=== PATIENT | male | born 1995 | race Caucasian/White ===

== ENCOUNTER 2021-04-18 12:54 | Observation (INO) ==
[2021-04-18 14:42] LABS: Basophils % 0.2 %; Eosinophils % 0.1 %; Hematocrit 45.5 % (37.5-50.1); Hemoglobin 14.6 g/dL (12.9-16.9); Immature Granulocytes % 0.2 % (0-4); Lymphocytes # 0.9 K/mcL (0.6-4.6); Lymphocytes % 10.8 %; Mean Corpuscular HGB Conc 32.1 g/dL (31.6-35.5); Mean Corpuscular Hemoglobin 29.9 pg (28.0-33.3); Mean Corpuscular Volume 93.2 fL (83.0-100.0); Mean Platelet Volume 9.5 fL (9.4-12.4); Monocytes # 0.9 K/mcL (0.0-1.3); Monocytes % 10.4 %; Neutrophils # 6.6 K/mcL (1.6-8.9); Platelet Count 288 K/mcL (140-400); Red Blood Count 4.88 M/mcL (4.19-5.50); Red Cell Distribution Width 12.7 % (11.5-14.5); Segmented Neutrophils % 78.3 %; White Blood Count 8.5 K/mcL (4.3-11.1)
[2021-04-18 15:01] LABS: BUN/Creatinine Ratio 13 (6-26); Blood Urea Nitrogen 11 mg/dL (6-20); Calcium 9.4 mg/dL (8.6-10.3); Carbon Dioxide 29 mEq/L (23-29); Chloride 104 mEq/L (98-107); Glucose 115 mg/dL (70-105); Osmolality,Calculated 290 (280-300); Potassium 3.6 mEq/L (3.5-5.1); Sodium 140 mEq/L (136-145); Troponin I < 0.03 ng/mL (< 0.04); eGFR For African Americans > 60 (> 60); eGFR For Non-African Americans > 60 (> 60)
[2021-04-18] MEDS ORDERED: Ondansetron 4 MG/2 ML VIAL ONE (15:10)
[2021-04-18 15:15] LABS: Influenza A PCR Negative (Negative); Influenza B PCR Negative (Negative); Resp. Syncytial Virus PCR Positive (Negative)
[2021-04-18 15:22] LABS: SARS-CoV-2 by PCR (In House) Positive (Negative)
[2021-04-18] MEDS ORDERED: Morphine Sulfate 2 MG/ML SYRINGE IVP ONE (15:50)
[2021-04-18] MEDS ORDERED: Ondansetron 4 MG/2 ML VIAL IVP PRN (15:52)
[2021-04-18] MEDS ORDERED: Acetaminophen 325 MG TABLET PO PRN (15:52)
[2021-04-18] MEDS ORDERED: Naloxone 0.4 MG/ML INJ IVP PRN (15:52)
[2021-04-18] MEDS: Nicotine 21 MG PATCH.TD24 TD SCH (19:21)
[2021-04-18] MEDS: *HR* OxyCODONE Immed Rel 5 MG TABLET PO PRN ×2 (19:40→23:56)
[2021-04-19] MEDS: *HR* OxyCODONE Immed Rel 5 MG TABLET PO PRN ×2 (04:58→09:25)
[2021-04-19 05:29] LABS: Hematocrit 46.6 % (37.5-50.1); Hemoglobin 14.9 g/dL (12.9-16.9); Mean Corpuscular Volume 93.8 fL (83.0-100.0); Mean Platelet Volume 9.7 fL (9.4-12.4); Platelet Count 294 K/mcL (140-400); Red Blood Count 4.97 M/mcL (4.19-5.50); Red Cell Distribution Width 12.6 % (11.5-14.5); White Blood Count 6.8 K/mcL (4.3-11.1)
[2021-04-19 05:49] LABS: BUN/Creatinine Ratio 10 (6-26); Blood Urea Nitrogen 9 mg/dL (6-20); Calcium 9.4 mg/dL (8.6-10.3); Carbon Dioxide 30 mEq/L (23-29); Chloride 103 mEq/L (98-107); Glucose 89 mg/dL (70-105); Osmolality,Calculated 286 (280-300); Potassium 3.9 mEq/L (3.5-5.1); Sodium 139 mEq/L (136-145); eGFR For African Americans > 60 (> 60); eGFR For Non-African Americans > 60 (> 60)
[2021-04-19] MEDS ORDERED: *HR* Enoxaparin 40 MG/0.4 ML SYRINGE SQ SCH (06:00)
[2021-04-19 06:56] VITALS: BP 110/67; PULSE 62; TEMP 98.1; O2SAT 97
[2021-04-19] MEDS: Nicotine 21 MG PATCH.TD24 TD SCH (07:33)
== END 2021-04-19 11:45 | disposition home or self-care (01) ==
LOC: 2NNU 12:54 → EMEROOARM 12:54 → SUATTDRO 16:24 → 2NNU 18:26
PROVIDERS: ADMIT Internal Medicine; ATTEND Family Medicine

== ENCOUNTER 2021-06-04 21:45 | Inpatient (IN) ==
[2021-06-04] MEDS ORDERED: *HR* Ketamine 500 MG/5 ML MDV IVP ONE (22:49)
[2021-06-04] MEDS ORDERED: KETAMINE IV ONE (23:00)
[2021-06-04] MEDS ORDERED: SODIUM CHLORIDE 0.9% IV ONE (23:00)
[2021-06-04] MEDS ORDERED: Lidocaine -MPF 1% 5 ML AMPUL INFILT ONE (23:15)
[2021-06-04 23:21] LABS: BUN/Creatinine Ratio 14 (6-26); Basophils % 0.4 %; Blood Urea Nitrogen 14 mg/dL (6-20); Calcium 9.6 mg/dL (8.6-10.3); Carbon Dioxide 29 mEq/L (23-29); Chloride 106 mEq/L (98-107); Eosinophils % 0.5 %; Glucose 91 mg/dL (70-105); Hematocrit 47.8 % (37.5-50.1); Hemoglobin 15.4 g/dL (12.9-16.9); INR 1.1; Immature Granulocytes % 0.2 % (0-4); Lymphocytes # 1.4 K/mcL (0.6-4.6); Lymphocytes % 16.5 %; Mean Corpuscular HGB Conc 32.2 g/dL (31.6-35.5); Mean Corpuscular Hemoglobin 30.3 pg (28.0-33.3); Mean Corpuscular Volume 94.1 fL (83.0-100.0); Mean Platelet Volume 9.5 fL (9.4-12.4); Monocytes # 0.7 K/mcL (0.0-1.3); Monocytes % 8.9 %; Osmolality,Calculated 282 (280-300); Platelet Count 316 K/mcL (140-400); Potassium 3.6 mEq/L (3.5-5.1); Prothrombin Time 12.3 Seconds (9.4-12.1); Red Blood Count 5.08 M/mcL (4.19-5.50); Red Cell Distribution Width 12.9 % (11.5-14.5); Segmented Neutrophils % 73.5 %; Sodium 136 mEq/L (136-145); White Blood Count 8.2 K/mcL (4.3-11.1); eGFR For African Americans > 60 (> 60); eGFR For Non-African Americans > 60 (> 60)
[2021-06-04 23:24] LABS: Activated Partial Thrombo Time 39.4 Seconds (26.0-36.0)
[2021-06-05] MEDS ORDERED: Ondansetron 4 MG/2 ML VIAL IVP PRN ×2 (00:36→11:31)
[2021-06-05] MEDS ORDERED: Naloxone 0.4 MG/ML INJ IVP PRN ×2 (00:36→11:31)
[2021-06-05] MEDS ORDERED: Melatonin 3 MG TABLET PO PRN (00:36)
[2021-06-05 01:46] LABS: Influenza A PCR Negative (Negative); Influenza B PCR Negative (Negative); Resp. Syncytial Virus PCR Negative (Negative)
[2021-06-05 01:47] LABS: SARS-CoV-2 by PCR (In House) Negative (Negative)
[2021-06-05 05:00] LABS: Basophils % 0.3 %; Eosinophils % 0.2 %; Hematocrit 44.2 % (37.5-50.1); Hemoglobin 14.5 g/dL (12.9-16.9); Immature Granulocytes % 0.3 % (0-4); Lymphocytes # 1.4 K/mcL (0.6-4.6); Lymphocytes % 14.2 %; Mean Corpuscular HGB Conc 32.8 g/dL (31.6-35.5); Mean Corpuscular Hemoglobin 30.7 pg (28.0-33.3); Mean Corpuscular Volume 93.4 fL (83.0-100.0); Mean Platelet Volume 9.6 fL (9.4-12.4); Monocytes # 0.9 K/mcL (0.0-1.3); Monocytes % 8.7 %; Neutrophils # 7.5 K/mcL (1.6-8.9); Platelet Count 289 K/mcL (140-400); Red Blood Count 4.73 M/mcL (4.19-5.50); Red Cell Distribution Width 12.7 % (11.5-14.5); Segmented Neutrophils % 76.3 %; White Blood Count 9.8 K/mcL (4.3-11.1)
[2021-06-05 05:14] LABS: BUN/Creatinine Ratio 12 (6-26); Blood Urea Nitrogen 11 mg/dL (6-20); Calcium 9.4 mg/dL (8.6-10.3); Carbon Dioxide 28 mEq/L (23-29); Chloride 105 mEq/L (98-107); Glucose 95 mg/dL (70-105); Osmolality,Calculated 285 (280-300); Potassium 3.6 mEq/L (3.5-5.1); Sodium 138 mEq/L (136-145); eGFR For African Americans > 60 (> 60); eGFR For Non-African Americans > 60 (> 60)
[2021-06-05] MEDS ORDERED: *HR* Heparin 5,000 UNIT/ML VIAL SQ SCH (06:00)
[2021-06-05] MEDS ORDERED: Ondansetron 4 MG/2 ML VIAL ONE (08:05)
[2021-06-05] MEDS ORDERED: *HR* Rocuronium Bromide 50 MG/5 ML VIAL ONE (08:05)
[2021-06-05] MEDS ORDERED: Lidocaine -MPF 2% 5 ML VIAL ONE (08:05)
[2021-06-05] MEDS ORDERED: ceFAZolin 2,000 MG in Water for inj. (sterile) 20 ML IVP ONE (08:06)
[2021-06-05] MEDS ORDERED: *HR* FentaNYL (PF) 100 MCG/2 ML VIAL ONE ×2 (08:07→09:11)
[2021-06-05] MEDS ORDERED: *HR* Propofol 200 MG/20 ML VIAL IVP ONE (08:07)
[2021-06-05] MEDS ORDERED: *HR* Midazolam HCl 2 MG/2 ML VIAL ONE ×2 (08:07→10:23)
[2021-06-05] MEDS ORDERED: Ketamine HCL *QUVA* 50mg (1mL) SYRINGE ONE (08:12)
[2021-06-05] MEDS ORDERED: Doxycycline 800 MG, Syringe LUER-LOK 1 EACH in 0.9 % Sodium Chloride 50 ML IX ONE ×2 (08:24→09:00)
[2021-06-05] MEDS ORDERED: *HR* HYDROmorphone PF 0.5 MG/0.5 ML SYRINGE IVP PRN (08:34)
[2021-06-05] MEDS ORDERED: Sugammadex Sodium 200 MG/2 ML VIAL IV ONE (09:38)
[2021-06-05] MEDS ORDERED: *HR* Midazolam HCl 2 MG/2 ML VIAL IVP ONE (10:21)
[2021-06-05] MEDS ORDERED: Haloperidol Lactate 5 MG/ML VIAL ONE (10:26)
[2021-06-05] MEDS ORDERED: 0.9 % Sodium Chloride 1,000 ML IVC SCH (11:31)
[2021-06-05] MEDS: *HR* HYDROcodone/Acet 5/325 mg TABLET PO PRN ×2 (12:03→20:05)
[2021-06-05] MEDS ORDERED: Acetaminophen 325 MG TABLET PO PRN (12:39)
[2021-06-05] MEDS: Ipratropium/Albuterol Neb 3 ML IH SCH ×3 (13:57→20:05)
[2021-06-05] MEDS: *HR* Heparin 5,000 UNIT/ML VIAL SQ SCH ×2 (14:57→21:52)
[2021-06-05] MEDS: Gabapentin 300 MG CAPSULE PO SCH ×2 (14:57→20:05)
[2021-06-05] MEDS: Sennosides/Docusate Sodium TABLET PO SCH (20:05)
[2021-06-05] MEDS: Famotidine 20 MG TABLET PO SCH (20:05)
[2021-06-06] MEDS: Ipratropium/Albuterol Neb 3 ML IH SCH ×3 (00:12→07:27)
[2021-06-06] MEDS: *HR* HYDROcodone/Acet 5/325 mg TABLET PO PRN ×3 (03:20→20:43)
[2021-06-06] MEDS: *HR* Heparin 5,000 UNIT/ML VIAL SQ SCH ×3 (05:51→20:43)
[2021-06-06 08:43] LABS: BUN/Creatinine Ratio 17 (6-26); Blood Urea Nitrogen 15 mg/dL (6-20); Calcium 9.2 mg/dL (8.6-10.3); Carbon Dioxide 28 mEq/L (23-29); Chloride 109 mEq/L (98-107); Glucose 120 mg/dL (70-105); Osmolality,Calculated 280 (280-300); Potassium 3.6 mEq/L (3.5-5.1); Sodium 134 mEq/L (136-145); eGFR For African Americans > 60 (> 60); eGFR For Non-African Americans > 60 (> 60)
[2021-06-06] MEDS: Gabapentin 300 MG CAPSULE PO SCH ×3 (08:54→20:43)
[2021-06-06] MEDS: Famotidine 20 MG TABLET PO SCH ×2 (08:55→20:44)
[2021-06-06] MEDS: Sennosides/Docusate Sodium TABLET PO SCH ×2 (08:56→20:44)
[2021-06-06] MEDS ORDERED: *HR* Metoprolol 5 MG/5 ML VIAL IVP PRN (14:23)
[2021-06-07] MEDS: *HR* Heparin 5,000 UNIT/ML VIAL SQ SCH ×3 (05:17→21:10)
[2021-06-07] MEDS: Gabapentin 300 MG CAPSULE PO SCH ×3 (08:15→21:10)
[2021-06-07] MEDS: Famotidine 20 MG TABLET PO SCH ×2 (08:15→21:09)
[2021-06-07] MEDS: Sennosides/Docusate Sodium TABLET PO SCH ×2 (08:15→21:10)
[2021-06-08] MEDS: *HR* Heparin 5,000 UNIT/ML VIAL SQ SCH ×3 (05:19→20:26)
[2021-06-08] MEDS: Famotidine 20 MG TABLET PO SCH ×2 (07:46→20:26)
[2021-06-08] MEDS: Gabapentin 300 MG CAPSULE PO SCH ×3 (07:46→20:26)
[2021-06-08] MEDS: Sennosides/Docusate Sodium TABLET PO SCH ×2 (07:46→20:36)
[2021-06-09] MEDS: *HR* Heparin 5,000 UNIT/ML VIAL SQ SCH (05:35)
[2021-06-09] MEDS: Famotidine 20 MG TABLET PO SCH (07:57)
[2021-06-09] MEDS: Gabapentin 300 MG CAPSULE PO SCH (07:57)
[2021-06-09] MEDS: Sennosides/Docusate Sodium TABLET PO SCH (07:57)
[2021-06-09 08:00] VITALS: BP 112/77; PULSE 99; TEMP 99; O2SAT 94
== END 2021-06-09 11:02 | disposition home or self-care (01) | DRG 164 ==
LOC: 2NENU 21:45 → EMEROOARM 21:45 → 2NENU 06-05 02:09 → SUATTDRO 06-05 11:36
PROVIDERS: ADMIT Internal Medicine; ATTEND Family Medicine